=== PATIENT | female | born 1990 | race Caucasian/White ===

== ENCOUNTER → 2020-08-16 | Outpatient (CLI) | payer OTHER ==
--- NOTE | 2020-08-17 10:57 | REP ---
INDICATION: ANATOMY F/U COMPARISON: None. TECHNIQUE: Transabdominal obstetrical ultrasound with color Doppler evaluation. FINDINGS: Examination demonstrates a single live intrauterine in breech presentation. motion is identified by technologist. Placenta is noted posterior and grade 1 without evidence for placenta previa or abruption. Amniotic fluid volume is normal. Cervix measures 5.0 cm in length and appears closed.. Gestational age by LMP 23 weeks 0 days with MAHNAZ 12/13/2020. Gestational age by current measurements 25 weeks 4 days with MAHNAZ 11/25/2020. FHR equals 145 beats per minute. BPD: 5.8 cm at 23 weeks 5 days HC: 21.5 cm at 23 weeks 4 days AC: 28.8 cm at 32 weeks 6 days FL: 4.2 cm at 23 weeks 4 days HL: 4.0 cm at 24 weeks 3 days HC/AC: 0.75 Estimated weight 1212 grams (greater than 97thpercentile based on age by LMP). Anatomical assessment demonstrates normal structures including cranium, choroid plexus, cavum, cerebellum/posterior fossa, facial features, lungs, four-chamber heart/left ventricular outflow tract, diaphragm, stomach, cord insertion/three-vessel cord, kidneys/bladder, spine, and extremities. IMPRESSION: 1. Single live intrauterine in breech presentation demonstrating greater than expected interval growth. Correlation and follow-up may be warranted. 2. Limited evaluation of the right cardiac ventricular outflow tract. Remainder of the anatomical assessment is complete and normal. <Electronically signed by Justin Gallegos > 08/17/20 2082
== END ==
LOC: M RAD 11:22
PROVIDERS: ATTEND Nurse Practitioner Women's Health
DX: Z34.82 Encounter for supervision of other normal pregnancy, second trimester (principal)